=== PATIENT | male | born 1995 | race Caucasian/White ===

== ENCOUNTER 2017-03-08 18:38 | Emergency (ER) | payer SELFPAY ==
[2017-03-08] MEDS ORDERED: FUL-GLO OP ONE (18:43)
[2017-03-08] MEDS ORDERED: TETRACAINE 0.5% OS ONE (18:44)
[2017-03-08 18:46] VITALS: BP 117/79
--- NOTE | 2017-03-08 18:50 | Emergency Department Report ---
Entered by SUKHDEEP BECKWITH, acting as scribe for JOON MCDONNELL NP. Chief Complaint: Eye Problems Stated Complaint: Time Seen by Provider: 03/08/17 18:41 - HPI History of Present Illness: 21 y/o male with Hx of Paranoia and Schizophrenia, presents c/o left eye "irritation" that started a couple weeks ago. Pt denies any visual disturbances. Pt denies tobacco or ETOH use. Pt c/o a "spot" on his eye. PT states he has had the spot for a while - ROS Review of Systems: +left eye "irritation" -visual disturbances - Exam Vital Signs: Vital Signs 03/08/17 18:42 Temperature 97.7 F Pulse Rate 86 Respiratory 18 Rate Blood Pressure 117/79 O2 Sat by Pulse 100 Oximetry Physical Exam: Eyes: PERRL, EOMI intact MSE screening note: Focused history and physical exam performed. Due to findings the following was ordered: meds, visual acuity ED Disposition for MSE Condition: Stable This documentation as recorded by the scribe,SUKHDEEP BECKWITH,accurately reflects the service I personally performed and the decisions made by SATHYA pineda TRACY M, NP.
== END 2017-03-09 03:59 | disposition left against medical advice (07) ==
LOC: ED 18:38
DX: H57.8 Other specified disorders of eye and adnexa (principal); Z53.21 Procedure and treatment not carried out due to patient leaving prior to being seen by health care provider

== ENCOUNTER 2021-02-14 21:05 | Emergency (ER) | payer MEDICAID ==
--- NOTE | 2021-02-15 01:08 | Emergency Department Report ---
ED General Adult HPI - General Chief complaint: Pain General Stated complaint: BODY PAIN Time Seen by Provider: 02/15/21 00:59 Source: patient Mode of arrival: Ambulatory Limitations: No Limitations - History of Present Illness Initial comments: 25-year-old male patient presents emergency department complaints of headache for 2 weeks. No preceding fall, trauma, or injury. Patient describes the pain as "like his head is swelling." He has not taken any yevy-[id number]-[id number] medications for his headache. Patient states he has not been sleeping well recently. He also states that he has been participating in a rigorous physical fitness training program and working long hours. Patient is not anticoagulated. Denies fever, neck stiffness, seizure, syncope, mental status changes, vision changes, nausea, vomiting, photophobia. Denies all other complaints at this time. - Related Data Previous Rx's Medication Instructions Recorded Last Taken Type Butalb/Acetamin/Caff 50-325-40 1 each PO Q4H PRN 3 Days tablet 02/15/21 Unknown Rx [Fioricet 50-325-40] Allergies Allergy/AdvReac Type Severity Reaction Status Date / Time No Known Allergies Allergy Unverified 03/08/17 18:45 ED Review of Systems ROS: Stated complaint: BODY PAIN Other details as noted in HPI Other: GENERAL: Negative for fever. CARDIOVASCULAR: Negative for chest pain. PULMONARY: Negative for shortness of breath. GASTROINTESTINAL: Negative for abdominal pain. MUSCULOSKELETAL: Negative for back pain. NEUROLOGICAL: Positive for headache INTEGUMENTARY: Negative for rash. ED Past Medical Hx - Past Medical History Previous Medical History?: Yes Hx Psychiatric Treatment: Yes (schizophrenia) - Surgical History Past Surgical History?: No - Social History Smoking Status: Never Smoker Substance Use Type: None - Medications Home Medications: Home Medications Medication Instructions Recorded Confirmed Last Taken Type Butalb/Acetamin/Caff 50-325-40 1 each PO Q4H PRN 3 Days tablet 02/15/21 Unknown Rx [Fioricet 50-325-40] ED Physical Exam - General Limitations: No Limitations - Other Other exam information: General: Awake and alert. No acute distress. Head: Atraumatic, normocephalic. Eyes: EOMI. Pupils are equal and round, reactive to light, no nystagmus. Normal sclera and conjunctiva. ENT: Oral mucosa is moist. Normal pharyngeal exam. Neck: Supple. No lymphadenopathy. Pulmonary: No respiratory distress. Clear to auscultation bilaterally. Cardiac: Regular rate and rhythm. Pulses are palpable and equal bilaterally. No lower extremity cyanosis or edema. Skin: Warm and dry. No rashes. Abdomen: Soft, non-tender, non-protuberant. No guarding, rigidity, or rebound. Bowel sounds are normal. No organomegaly or masses noted. Back: Normal alignment. No CVA tenderness. Extremities: Symmetrical. Full range of motion intact. Neurological: Alert and oriented, appropriately interactive, no focal deficits. Strength and sensation intact throughout. Ambulatory without assistance. Psych: Cooperative. Appropriate mood and affect. Speech is evenly metered. Thoughts are logically construed. ED Course Vital Signs 02/14/21 02/15/21 22:29 01:25 Temperature 99.0 F Pulse Rate 82 69 Respiratory 18 18 Rate Blood Pressure 118/75 O2 Sat by Pulse 99 99 Oximetry ED Medical Decision Making - Medical Decision Making Differential diagnosis including but not limited to: tension headache, migraine headache, cluster headache, meningitis, intracranial hemorrhage, temporal arteritis Patient presents to the emergency department with complaints of nontraumatic headache for 2 weeks, among several other chronic nonemergent complaints (i.e. trouble sleeping, feeling stressed, bodyaches for two years), all of which have been deferred to his primary care provider. He appears comfortable, talking and laughing with other patients around him upon entering the acute waiting room. The patient is alert, interactive and in no distress. The patient is neurovascularly intact and ambulatory in emergency department. History and exam findings do not suggest worrisome pathology to warrant further testing, emergent intervention, admission, or specialist evaluation at this point. Additional testing such as CT imaging or lumbar puncture is not indicated at this time, but should be considered if symptoms worsen or recur. Discussed findings, presumptive diagnosis, need for follow-up and specific signs/symptoms that should prompt immediate return to the emergency department. Instructions were explained in detail to the patient in addition to giving written discharge information. Patient expressed understanding and was given the opportunity to ask questions, all of which were satisfactorily answered prior to discharge home. Critical care attestation.: If time is entered above; I have spent that time in minutes in the direct care of this critically ill patient, excluding procedure time. ED Disposition Clinical Impression: Tension headache Disposition: DC-01 TO HOME OR SELFCARE Is pt being admited?: No Does the pt Need Aspirin: No Condition: Stable Instructions: Tension Headache, Adult Additional Instructions: Rest. Drink plenty of fluids. Take Motrin every 8 hours as needed for headache. If Motrin is not sufficient in controlling your pain, take Fioricet as directed. You must follow-up with a primary care provider this week. Call Wednesday to schedule an appointment. Return to the emergency department immediately for new or worsening symptoms. Prescriptions: Butalb/Acetamin/Caff 50-325-40 [Fioricet 50-325-40] 1 each PO Q4H PRN 3 Days tablet PRN Reason: Headache Referrals: [facility] [Primary Care Provider] - 3-5 Days JACI KRAFT MD [Staff Physician] - 3-5 Days [facility] [Outside] - 3-5 Days [facility] [Outside] - 3-5 Days [facility] [Outside] - 3-5 Days Time of Disposition: 01:08
== END 2021-02-15 01:25 | disposition home or self-care (01) ==
LOC: ED 21:05
CPT/HCPCS: 99282